=== PATIENT | female | born 1985 | race American Indian/Alaskan Native ===

== ENCOUNTER 2017-04-30 14:09 | Emergency (ER) | payer SELFPAY ==
[2017-04-30 17:23] LABS: Bilirubin,Urine NEG (Negative); Blood,Urine NEG (Negative); Color,Urine Yellow (Yellow); Mucus,Urine FEW /HPF; Protein,Urine <15 mg/dL mg/dL (Negative); Urobilinogen,Urine < 2.0 mg/dL (<2.0)
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
[2017-04-30 20:02] LABS: HCG Qualitative,Urine Negative (Negative)
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
[2017-04-30 21:54] VITALS: BP 142/72
== END 2017-04-30 18:35 | disposition home or self-care (01) ==
LOC: ED 14:09
DX: S13.4XXA Sprain of ligaments of cervical spine, initial encounter (principal); J32.9 Chronic sinusitis, unspecified; V89.2XXA Person injured in unspecified motor-vehicle accident, traffic, initial encounter; Y93.89 Activity, other specified; Y92.89 Other specified places as the place of occurrence of the external cause; Y99.8 Other external cause status
CPT/HCPCS: 70450; 72125; 81001; 81025; 99284

== ENCOUNTER 2019-04-23 00:08 | Emergency (ER) | payer SELFPAY ==
[2019-04-23] MEDS ORDERED: IBUPROFEN 600 MG TAB PO ONE ×2 (00:22)
[2019-04-23 02:52] VITALS: BP 139/87
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
[2019-04-23] MEDS ORDERED: SODIUM CHLORIDE 0.9% 1000 ML 1,000 ML IV ONE (03:35)
[2019-04-23] MEDS ORDERED: NEOMY 3.5 MG/BACIT 400 UNITS/POLY B 5000 UNITS/GM OINT PACKET TP ONE (03:35)
== END 2019-04-23 04:29 | disposition home or self-care (01) ==
LOC: ED 00:08
DX: T23.101A Burn of first degree of right hand, unspecified site, initial encounter (principal); Z79.899 Other long term (current) drug therapy; Z91.041 Radiographic dye allergy status; X58.XXXA Exposure to other specified factors, initial encounter; Y93.89 Activity, other specified; Y92.89 Other specified places as the place of occurrence of the external cause; Y99.8 Other external cause status
CPT/HCPCS: A6250